=== PATIENT | female | born 2000 | race Caucasian/White ===

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

== ENCOUNTER 2021-04-17 01:14 | Emergency (ER) | payer OTHER ==
[~2021-04-17] VITALS: Ht 170.2 cm; Wt 54.9 kg
[2021-04-17 01:14] VITALS: BP 141/92
== END 2021-04-17 01:50 | disposition left against medical advice (07) ==
LOC: M ED 01:14
DX: Z53.21 Procedure and treatment not carried out due to patient leaving prior to being seen by health care provider (principal)

== ENCOUNTER 2021-04-17 15:15 | Emergency (ER) | payer OTHER ==
[~2021-04-17] VITALS: Ht 170.2 cm; Wt 53.4 kg
[2021-04-17] MEDS ORDERED: NS 1,000 ML IV ONE (19:30)
[2021-04-17 20:16] LABS: BASO % 0.4 % (0.0-1.0); EOS # 0.1 10^3/uL (0.0-0.5); EOS % 1.3 % (0.0-3.0); HEMATOCRIT 37.1 % (36.0-47.0); HEMOGLOBIN 12.7 g/dl (12.0-15.5); LYMPH # 2.4 10^3/uL (1.5-5.0); LYMPH % 27.7 % (24.0-44.0); MEAN CORPUSCULAR HEMOGLOBIN 29.7 pg (27.0-33.0); MEAN CORPUSCULAR HGB CONC 34.2 g/dl (32.0-36.5); MEAN CORPUSCULAR VOLUME 86.9 fl (80.0-96.0); MONO # 0.7 10^3/uL (0.0-0.8); MONO % 7.7 % (2.0-8.0); NEUTROPHILS # 5.4 10^3/uL (1.5-8.5); NEUTROPHILS % 62.5 % (36.0-66.0); PLATELET COUNT, AUTOMATED 491 10^3/uL (150-450); RED BLOOD COUNT 4.27 10^6/uL (4.00-5.40); WHITE BLOOD COUNT 8.6 10^3/uL (4.0-10.0)
[2021-04-17 20:42] LABS: ALBUMIN 4.1 GM/DL (3.2-5.2); BILIRUBIN,DIRECT 0.1 MG/DL (0.0-0.2); BILIRUBIN,TOTAL 0.5 MG/DL (0.2-1.0)
--- NOTE | 2021-04-17 22:03 | REPVR ---
PROCEDURE INFORMATION Exam: CT Abdomen and Pelvis without Contrast Exam date and time: 04/17/21 (8:34pm) Age: 20 years old Clinical indication: Right flank pain TECHNIQUE: Imaging protocol: Computed tomography of the abdomen and pelvis without contrast. Radiation optimization: All CT scans at this facility use at least one of these dose optimization techniques: automated exposure control; mA and/or kV adjustment per patient size (includes targeted exams where dose is matched to clinical indication); or iterative reconstruction. COMPARISON: US PELVIS of 01/07/20 FINDINGS: Liver: Normal. No mass. Gallbladder and bile ducts: Normal. No calcified stones. No ductal dilatation. Pancreas: Normal. No ductal dilatation. Spleen: Prominent spleen. Adrenal glands: Normal. No mass. Kidneys and ureters: Unremarkable. No acute fracture nor dislocation.No hydronephrosis. Stomach and bowel: Unremarkable. No bowel obstruction. No mucosal thickening. Appendix: A normal appendix is visualized. Intraperitoneal space: Unremarkable. No free air. No significant fluid collection. Vasculature: Unremarkable. No abdominal aortic aneurysm. Lymph nodes: Unremarkable. No enlarged lymph nodes. Urinary bladder: Unremarkable as visualized. Reproductive: Unremarkable as visualized. Tampon in place. Bones/joints: Unremarkable. No acute fracture. Soft tissues: Unremarkable. IMPRESSION: No acute findings. No hydronephrosis is appreciated. No radiodense urinary tract stones are visualized. Electronically signed by: Lois Chen On 04/17/2021 22:03:21 PM
[2021-04-17 22:21] VITALS: BP 134/87
== END 2021-04-17 22:38 | disposition home or self-care (01) ==
LOC: M ED 15:15
DX: M54.5 Low back pain (principal); G89.29 Other chronic pain; F17.290 Nicotine dependence, other tobacco product, uncomplicated

== ENCOUNTER → 2024-01-08 | Outpatient (CLI) | payer OTHER, SELFPAY ==
[~2024-01-08] MED LIST changes: +ONDA-282 PO; -ONDA4TAB6 PO
[2024-01-08 17:41] LABS: BASO % 0.4 % (0.0-1.0); EOS % 0.5 % (0.0-3.0); HEMOGLOBIN 13.2 g/dl (12.0-15.5); LYMPH # 1.9 10^3/uL (1.5-5.0); LYMPH % 23.9 % (24.0-44.0); MEAN CORPUSCULAR HEMOGLOBIN 29.9 pg (27.0-33.0); MEAN CORPUSCULAR HGB CONC 33.8 g/dl (32.0-36.5); MEAN CORPUSCULAR VOLUME 88.4 fl (80.0-96.0); MONO # 0.5 10^3/uL (0.0-0.8); MONO % 6.5 % (2.0-8.0); NEUTROPHILS # 5.4 10^3/uL (1.5-8.5); NEUTROPHILS % 68.4 % (36.0-66.0); PLATELET COUNT, AUTOMATED 465 10^3/uL (150-450); RED BLOOD COUNT 4.41 10^6/uL (4.00-5.40); WHITE BLOOD COUNT 7.9 10^3/uL (4.0-10.0)
[2024-01-08 17:44] LABS: APPEARANCE, URINE HAZY (CLEAR); BACTERIA, URINE AUTO NEGATIVE (NEGATIVE); BILIRUBIN, URINE AUTO NEGATIVE (NEGATIVE); BLOOD, URINE BLOOD 1+ (NEGATIVE); COLOR, URINE YELLOW (YELLOW); GLUCOSE, URINE (UA) AUTO NEGATIVE (NEGATIVE); KETONE, URINE AUTO 2+ mg/dL (NEGATIVE); LEUKOCYTE ESTERASE, URINE AUTO NEGATIVE (NEGATIVE); MUCUS, URINE LARGE (NEGATIVE); NITRITE, URINE AUTO NEGATIVE (NEGATIVE); PROTEIN, URINE AUTO 1+ mg/dL (NEGATIVE); RBC, URINE AUTO 2 /HPF (0-3); SPECIFIC GRAVITY URINE AUTO 1.027 (1.002-1.035); SQUAMOUS EPITHELIAL CELL UR AU 2 /HPF (0-6); UROBILINOGEN, URINE AUTO 0.2 mg/dL (0.0-2.0); WBC, URINE AUTO 1 /HPF (0-3)
[2024-01-08 17:56] LABS: ALBUMIN 4.4 G/DL (3.2-5.2); ALKALINE PHOSPHATASE 65 U/L (46-116); ALT/SGPT 64 U/L (7.0-40); AST/SGOT 28 U/L (<34); BILIRUBIN,TOTAL 0.6 MG/DL (0.3-1.2); BLOOD UREA NITROGEN 11 MG/DL (9-23); CALCIUM LEVEL 9.8 MG/DL (8.5-10.1); CARBON DIOXIDE LEVEL 26 MMOL/L (20-31); CHLORIDE LEVEL 105 MMOL/L (98-107); CREATININE FOR GFR 0.75 MG/DL (0.55-1.30); GLOMERULAR FILTRATION RATE > 60.0 (>60); GLUCOSE, FASTING 98 MG/DL (60-100); POTASSIUM SERUM 3.7 MMOL/L (3.5-5.1); SODIUM LEVEL 141 MMOL/L (136-145); TOTAL PROTEIN 8.1 G/DL (5.7-8.2)
== END ==
LOC: M WUC 14:18
PROVIDERS: ATTEND Family Medicine
DX: R53.81 Other malaise (principal)

== ENCOUNTER 2024-05-01 08:38 | Day surgery (SDC) | payer SELFPAY ==
[~2024-05-01] VITALS: Ht 170.2 cm; Wt 76.3 kg
[~2024-05-01 08:38] MED LIST changes: +BANO25TA; +PANT40TA29 PO; +PROM25TA12
[2024-05-01] MEDS: NS 1,000 ML IV ONE (08:51)
[2024-05-01 09:48] VITALS: TEMP 97.9
[2024-05-01] MEDS ORDERED: LIDOCAINE 2% 100MG/5ML SDV (FOR ANES.) As Ordered ONE (09:57)
[2024-05-01] MEDS ORDERED: propofoL 200 MG/20 ML VIAL As Ordered ONE (09:58)
[2024-05-01 10:07] VITALS: BP 138/93; O2SAT 100
== END 2024-05-01 10:14 | disposition home or self-care (01) ==
LOC: M OPP 08:38
PROVIDERS: ATTEND Surgery
DX: K31.89 Other diseases of stomach and duodenum (principal); R10.13 Epigastric pain; F17.290 Nicotine dependence, other tobacco product, uncomplicated; Z79.899 Other long term (current) drug therapy